=== PATIENT | female | born 1955 | race Caucasian/White ===

== ENCOUNTER 2021-04-04 13:20 | Emergency (ER) | payer OTHER, SELFPAY ==
--- NOTE | ~2021-04-04 | XR_ITS ---
EXAMINATION: XR hip LT min 2V DATE: 04/04/2021 13:55 INDICATION: Left hip pain post running 2 weeks prior. TECHNIQUE: Anteroposterior and frog-leg lateral views of the left hip were obtained. COMPARISON: None. FINDINGS: Bone alignment is normal. No fracture or suspected avascular necrosis. Left hip joint space appears n ormal although there are small marginal osteophytes along the rim of the acetabulum consistent with m ild osteoarthritis. Transitional lumbosacral segment. The immediately more cephalad lower lumbar vert ebral body demonstrates an age-indeterminate mild central endplate compression fracture. Soft tissues are unremarkable. IMPRESSION: 1. Mild left hip osteoarthritis. 2. Age indeterminate lower lumbar mild central endplate compression fracture. Reviewed, dictated and finalized at location A.
--- NOTE | 2021-04-04 13:23 | ED.LOWEXIN ---
HPI - Extremity Injury (Lower) General Chief Complaint: Extremity Injury, Lower Stated Complaint: L Leg pain Time Seen by Provider: 04/04/21 13:23 Source: patient and RN notes reviewed History of Present Illness HPI Narrative: Patient is a 65-year-old female who presents the urgent care with complaints of left hip/leg pain. Patient states that 2 weeks ago that she jogged a 4 mile run and she was having some left leg pain at the time. Patient states that then last weekend she got a massage which really exacerbated the pain. Patient believes that she has a stress fracture in the hip . Patient states that she has been taking Flexeril/Advil/Aleve for pain relief. Patient is also used ice and heat. Patient denies of any traumatic injury or fall. No other acute complaints. No acute distress noted. Patient aware of the plan of care. Some parts of this dictation were generated by voice recognition software and may contain typographical and/or grammatical inaccuracies. Related Data Home Medications Medication Instructions Recorded Confirmed albuterol sulfate 2 puff INHALATION Q4H PRN 04/04/21 04/04/21 beclomethasone dipropionate [Qvar 80 mcg INHALATION BID 04/04/21 04/04/21 RediHaler] cyclobenzaprine 5 mg PO BID PRN 04/04/21 04/04/21 montelukast 10 mg PO HS 04/04/21 04/04/21 pantoprazole 40 mg PO DAILY 04/04/21 04/04/21 phentermine 37.5 mg PO DAILY 04/04/21 04/04/21 tramadol 50 mg PO TID PRN 04/04/21 04/04/21 trazodone 100 mg PO DAILY 04/04/21 04/04/21 venlafaxine 75 mg PO DAILY 04/04/21 04/04/21 Allergies Allergy/AdvReac Type Severity Reaction Status Date / Time Penicillins Allergy Intermediate Rash Verified 04/04/21 13:51 Review of Systems Review of Systems: CONSTITUTIONAL: Denies fever, chills, or sweats. EYES: Denies visual changes, redness, or discharge. ENT: Denies rhinorrhea, congestion, sore throat, or otalgia. CARDIOVASCULAR: Denies chest pain, palpitations, or edema. RESPIRATORY: Denies cough or dyspnea. GASTROINTESTINAL: Denies abdominal pain, nausea, vomiting, or diarrhea. GENITOURINARY: Denies dysuria or hematuria. SKIN: Denies rash or itching. MUSCULOSKELETAL: Reports of left hip pain radiating down the left leg NEUROLOGIC: Denies headache, numbness, or weakness. All other systems reviewed are negative, except as documented in HPI. PMFSH Comments At the time of my signature, I reviewed and agree with the nursing past medical, surgical, social, and family history. There is no relevant family history pertinent to the patient complaint. Exam Narrative: GENERAL: This is a well-nourished, well-developed patient, in no apparent distress. HEAD: normocephalic, atraumatic. EYES: PERRL. Sclera clear/white. Vision is grossly intact. EARS: External ears normal NOSE: External nose normal with no obvious nasal discharge, nares without redness, no rhinorrhea. THROAT: Mucous membranes moist NECK: Neck supple CARDIOVASCULAR: Regular rate and rhythm without murmurs, gallops, or rubs. RESPIRATORY: Clear to auscultation. Breath sounds equal bilaterally. No wheezes, rales, or rhonchi. SKIN: Ecchymotic area to the left piriformis region. Warm, intact with no suspicious lesions or rash, good texture and turgor. NEURO: awake, alert, and oriented to person, place and time. There were no obvious focal neurologic abnormalities. EXTREMITIES: Ambulating within normal limits without any shortening of the left lower extremity. Positive strong left pedal pulse with capillary refill less than 2 seconds. BACK: Mild to moderate tenderness over the left piriformis region with positive left SLE Course Vital Signs Vital signs: Vital Signs Temperature 98.1 F 04/04/21 13:37 Pulse Rate 78 04/04/21 13:37 Respiratory Rate 04/04/21 13:37 Blood Pressure 130/75 04/04/21 13:37 Pulse Oximetry 100 04/04/21 13:37 Temperature 98.1 F 04/04/21 13:37 Pulse Rate 78 04/04/21 13:37 Respiratory Rate 04/04/21 13:37 B
[2021-04-04 13:37] VITALS: BP 130/75; PULSE 78; RESP 20; TEMP 36.7; O2SAT 100
== END 2021-04-04 14:27 | disposition home or self-care (01) ==
PROVIDERS: Emergency Provider Nurse Practitioner Family; PCP Internal Medicine
DX: G57.02 Lesion of sciatic nerve, left lower limb (principal); M16.12 Unilateral primary osteoarthritis, left hip; J45.909 Unspecified asthma, uncomplicated; K21.9 Gastro-esophageal reflux disease without esophagitis; Z90.711 Acquired absence of uterus with remaining cervical stump; F32.9 Major depressive disorder, single episode, unspecified
CPT/HCPCS: 73502; 99213; G0463

== ENCOUNTER 2021-05-04 12:48 | Emergency (ER) | payer MEDICARE, SELFPAY ==
[2021-05-04 12:55] VITALS: BP 134/89; PULSE 96; RESP 16; TEMP 36.7; O2SAT 97
--- NOTE | 2021-05-04 12:57 | ED.URI ---
HPI - URI/Sore Throat General Chief Complaint: Upper Respiratory Infection Stated Complaint: breathing prob,cough,head izabel Source: patient and RN notes reviewed Mode of arrival: ambulatory Limitations: no limitations History of Present Illness HPI Narrative: Ailyn is a 66 year old patient who ambulated into urgent care with c/o cough and chest pressure all the time. patient states she has been sick for four weeks--she has had a negative covid test on 04/12. She has seen her PCP at beginning of april, no RX's given. Patient states she started with sinus drainage and nasal congestion, which then turned into hacky cough worse at night over last week. patient states she has not used her albuterol inhaler. MD elicited complaint: cough and sinus pain Related Data Home Medications Medication Instructions Recorded Confirmed albuterol sulfate 2 puff INHALATION Q4H PRN 04/04/21 05/04/21 beclomethasone dipropionate [Qvar 80 mcg INHALATION BID 04/04/21 05/04/21 RediHaler] cyclobenzaprine 5 mg PO BID PRN 04/04/21 05/04/21 montelukast 10 mg PO HS 04/04/21 05/04/21 pantoprazole 40 mg PO DAILY 04/04/21 05/04/21 phentermine 37.5 mg PO DAILY 04/04/21 05/04/21 tramadol 50 mg PO TID PRN 04/04/21 05/04/21 trazodone 100 mg PO DAILY 04/04/21 05/04/21 venlafaxine 75 mg PO DAILY 04/04/21 05/04/21 Allergies Allergy/AdvReac Type Severity Reaction Status Date / Time Penicillins Allergy Intermediate Rash Verified 05/04/21 12:53 Review of Systems Review of Systems: CONSTITUTIONAL: Denies body aches, fever, chills, or sweats. EYES: Denies visual changes, redness, or discharge. ENT: Denies rhinorrhea, +congestion, denies sore throat, or otalgia. CARDIOVASCULAR: Denies chest pain, palpitations, or edema. RESPIRATORY: + cough denies dyspnea. GASTROINTESTINAL: Denies abdominal pain, nausea, vomiting, or diarrhea. GENITOURINARY: Denies dysuria or hematuria. SKIN: Denies rash, itching, or wounds. MUSCULOSKELETAL: Denies back pain, joint pain, or myalgia. NEUROLOGIC: Denies headache, numbness, tingling, or weakness. PSYCH: Denies depression or anxiety. All systems reviewed & are unremarkable except as noted in HPI and below PMFSH Comments At time of signature, I have reviewed and agree with nursing past medical, surgical, social and family history unless otherwise noted. Please see nursing chart for further information. There is no relevant family history pertinent to the presenting complaint Exam Narrative: GENERAL: Well-appearing, well-nourished, and in no acute distress. HEAD: Normocephalic, atraumatic. EYES: EOMI. No redness or drainage. Conjunctivae normal. ENT: Mucous membranes pink and moist. Nares clear. No rhinorrhea. TMs dull. Posterior pharynx with minimal erythema and clear postnasal drainage.; pain with palpation maxillary sinuses NECK: Normal AROM. Supple. No lymphadenopathy. CHEST: No respiratory distress. Clear to auscultation except wheezing in RUL, HEART: Regular rate and rhythm. No murmur appreciated. Normal peripheral pulses. MUSCULOSKELETAL: No bony tenderness. EXTREMITIES: Normal range of motion. No edema. SKIN: Warm, dry, no rash. Capillary refill normal. Normal skin turgor. NEURO: No focal deficits. Alert and oriented x3. Gait steady. PSYCH: Normal affect. No signs of depression or anxiety. Course Vital Signs Vital signs: Reviewed. Pt has been instructed to follow up with her PCP regarding her elevated blood pressure today. MDM - URI/Sore Throat MDM Narrative Medical decision making narrative: Patient has had sinus symptoms for 4 weeks. Patient stated the cough started within the last week. Patient has not used her albuterol inhaler as directed. Patient informed to use her albuterol for wheezing. Patient informed to take the doxycycline as prescribed Differential Diagnosis Differential diagnosis: Likely upper respiratory infection, otitis media, sinusitis and bronchitis Medical Records Attestation:
[2021-05-04 13:05] VITALS: BP 134/89; PULSE 96; RESP 16; TEMP 36.7; O2SAT 97
== END 2021-05-04 13:20 | disposition home or self-care (01) ==
PROVIDERS: Emergency Provider Nurse Practitioner Family; PCP Internal Medicine
DX: J40 Bronchitis, not specified as acute or chronic (principal); K21.9 Gastro-esophageal reflux disease without esophagitis; Z90.711 Acquired absence of uterus with remaining cervical stump; F32.A Depression, unspecified
CPT/HCPCS: 99213; G0463

== ENCOUNTER 2021-12-02 10:33 | Emergency (ER) | payer MEDICARE, SELFPAY ==
--- NOTE | ~2021-12-02 | XR_ITS ---
XR chest 2V DATE: 12/02/2021 12:06 INDICATION: Cough. History of pulmonary abscess. TECHNIQUE: 2 views COMPARISON: 05/03/2019 PA and lateral chest FINDINGS: Normal heart size. No hilar or mediastinal enlargement. Moderate bilateral hyperinflation. No pulmonary infiltrate or consolidation, pleural effusion or pulmonary vascular congestion or pneumo thorax. Osteopenia. There is interval moderate loss of height and anterior wedging of a lower thoracic vertebral body, ap proximately T11, since 05/03/2019. IMPRESSION: Interval moderate compression fracture deformity of the lower thoracic vertebral body sin ce 2019 Osteopenia No active cardiopulmonary disease Reviewed, dictated and finalized at location A. IMPRESSION: Interval moderate compression fracture deformity of the lower thora cic vertebral body since 2019 Osteopenia No active cardiopulmonary disease
[2021-12-02 10:42] VITALS: BP 128/76; PULSE 107; RESP 16; TEMP 38.2; O2SAT 100
--- NOTE | 2021-12-02 11:54 | ED.GENADULT ---
HPI - General Adult General Chief complaint: Upper Respiratory Infection Stated complaint: Sore Throat/Cough Source: patient Mode of arrival: ambulatory History of Present Illness HPI narrative: Patient presents for evaluation of respiratory symptoms. 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 She has previously undergone bronchoscopy and is under the care of Dr. Michael, coroner/medical examiner at [facility]. She states she is immunosuppressed and receives infusions once monthly for this. Around the time of her infusions she usually feels run down but her symptoms improve after her infusion. She states last week she was feeling run down but her symptoms did not improve after her infusion. She states she can tell when she is getting a respiratory infection because her sputum becomes green in appearance. She states her sputum is now green in appearance. She has some exertional dyspnea and wheezing. No fever, chills, nausea, vomiting, diarrhea, body aches or chest pain. She is compliant with her inhalers. She does not smoke. She did receive her COVID vaccination. She had COVID some time in the last year. Her throat feels raw from coughing. No additional complaints or concerns. Related Data Home Medications Medication Instructions Recorded Confirmed albuterol sulfate 90 mcg/actuation 2 puff inhalation Q4H PRN 04/04/21 12/02/21 aerosol inhaler Shortness Of Breath Or Wheezing beclomethasone dipropionate 80 80 mcg inhalation BID 04/04/21 12/02/21 mcg/actuation HFA breath activated aerosol (Qvar RediHaler) montelukast 10 mg tablet 10 mg PO HS 04/04/21 12/02/21 pantoprazole 40 mg tablet,delayed 40 mg PO DAILY 04/04/21 12/02/21 release phentermine 37.5 mg tablet 37.5 mg PO DAILY 04/04/21 12/02/21 tramadol 50 mg tablet 50 mg PO TID PRN Pain 04/04/21 12/02/21 trazodone 100 mg tablet 100 mg PO DAILY 04/04/21 12/02/21 venlafaxine 75 mg capsule,extended 75 mg PO DAILY 04/04/21 12/02/21 release 24 hr Allergies Allergy/AdvReac Type Severity Reaction Status Date / Time Penicillins Allergy Intermediate Rash Verified 12/02/21 11:49 Review of Systems Review of Systems: CONSTITUTIONAL: Denies fever, chills, or sweats. EYES: Denies visual changes, redness, or discharge. ENT: Reports sore throat. Denies rhinorrhea, congestion, or otalgia. CARDIOVASCULAR: Denies chest pain, palpitations, or edema. RESPIRATORY: Reports productive cough of green sputum, exertional dyspnea, and wheezing. GASTROINTESTINAL: Denies abdominal pain, nausea, vomiting, or diarrhea. GENITOURINARY: Denies dysuria or hematuria. SKIN: Denies rash or itching. MUSCULOSKELETAL: Denies back pain, joint pain, or myalgia. NEUROLOGIC: Denies headache, numbness, dizziness, or weakness. PSYCHIATRIC: Denies anxiety or depression. [facility] Past Medical History Medical History (Updated 12/02/21 @ 12:46 by SUSI Garcia, ) History of recurrent pulmonary infection Immunocompromised Surgical History Surgical History History of lung biopsy Family History Family History (Updated 12/02/21 @ 12:01 by SUSI Garcia, ) Mother Family history non-contributory Social History Social History Smoking status: Never smoker Substance use: never Living arrangements: with family Gender identity (if verbalized by the patient): Female Sexual Orientation (if Verbalized by the Patient): Straight or Heterosexual Spiritual care concerns: No Exam Narrative: GENERAL: Well-appearing, well-nourished, and in no acute distress. HEAD: Normocephalic, atraumatic. EYES: PERRLA and EOMI. ENT: Nares clear, no rhinorrhea or epistaxis. Mucous membranes moist. Oropharynx without tonsillar hypertrophy exudate or other lesions. Bilateral TMs fior
[2021-12-02 12:50] VITALS: TEMP 37.9
[2021-12-02] MEDS: ACETAMINOPHEN 500 MG TABLET 1000 MG PO (12:50)
== END 2021-12-02 13:04 | disposition home or self-care (01) ==
PROVIDERS: Emergency Provider Nurse Practitioner; PCP Internal Medicine
DX: J18.9 Pneumonia, unspecified organism (principal); M48.54XA Collapsed vertebra, not elsewhere classified, thoracic region, initial encounter for fracture; Z20.822 Contact with and (suspected) exposure to COVID-19; D84.9 Immunodeficiency, unspecified
CPT/HCPCS: 71046; 87081; 87426; 87804; 87880; 99213; A9270; C9803; G0463

== ENCOUNTER 2021-12-12 11:37 | Emergency (ER) | payer MEDICARE, SELFPAY ==
--- NOTE | ~2021-12-12 | XR_ITS ---
XR knee RT min 4V 12/12/2021 12:08 Indication: Generalized right knee swelling after running Procedure: 4 views right knee Comparison: No prior studies for comparison. Findings: Moderate joint effusion. No acute fracture or traumatic malalignment. No foreign bodies. No significant joint space narrowing. Impression: 1: Moderate joint effusion. Reviewed, dictated and finalized at location B. Impression: 1: Moderate joint effusion.
[2021-12-12 11:42] VITALS: BP 119/74; PULSE 95; RESP 16; TEMP 37.1; O2SAT 100
--- NOTE | 2021-12-12 11:44 | ED.LOWEXIN ---
HPI - Extremity Injury (Lower) General Chief Complaint: Extremity Injury, Lower Stated Complaint: right knee pain Time Seen by Provider: 12/12/21 11:45 Source: patient Mode of arrival: ambulatory Limitations: no limitations History of Present Illness HPI Narrative: Ms. Araujo is a 66-year-old female patient presenting to the clinic today with complaints of right knee pain 1 week. She reports she began having pain 3 days after running. She reports that she has pain all over the knee joint however the anterior knee joint is the most painful. She reports that it hurts to bend her knee. Knee is swollen when compared to the left knee. She has tried rest, ice, and elevation as well as Motrin for the discomfort with little relief Related Data Home Medications Medication Instructions Recorded Confirmed albuterol sulfate 90 mcg/actuation 2 puff inhalation Q4H PRN 04/04/21 12/12/21 aerosol inhaler Shortness Of Breath Or Wheezing beclomethasone dipropionate 80 80 mcg inhalation BID 04/04/21 12/12/21 mcg/actuation HFA breath activated aerosol (Qvar RediHaler) montelukast 10 mg tablet 10 mg PO HS 04/04/21 12/12/21 pantoprazole 40 mg tablet,delayed 40 mg PO DAILY 04/04/21 12/12/21 release phentermine 37.5 mg tablet 37.5 mg PO DAILY 04/04/21 12/12/21 tramadol 50 mg tablet 50 mg PO TID PRN Pain 04/04/21 12/12/21 trazodone 100 mg tablet 100 mg PO DAILY 04/04/21 12/12/21 venlafaxine 75 mg capsule,extended 75 mg PO DAILY 04/04/21 12/12/21 release 24 hr Allergies Allergy/AdvReac Type Severity Reaction Status Date / Time Penicillins Allergy Intermediate Rash Verified 12/12/21 11:44 Review of Systems Review of Systems: Pertinent positives per HPI. Patient denies any fever, chills, rash, headache, visual changes, dizziness, cough, runny nose, sore throat, shortness of breath, chest pain, palpitations, nausea, vomiting, diarrhea, constipation, abdominal pain, or any urinary issues. [facility] Past Medical History Medical History History of recurrent pulmonary infection Immunocompromised Surgical History Surgical History History of lung biopsy Family History Family History Mother Family history non-contributory Social History Social History Smoking status: Never smoker Substance use: never Gender identity (if verbalized by the patient): Female Sexual Orientation (if Verbalized by the Patient): Straight or Heterosexual Spiritual care concerns: No Comments At the time of my signature, I reviewed and agree with the nursing past medical, surgical, social, and family history. There is no relevant family history pertinent to the patient complaint. Exam Narrative: General: Well-developed, well nourished, in no apparent distress Head: Normocephalic, atraumatic. Cardio: Regular rate and rhythm, s1 and s2 normal, no murmur appreciated. Resp: Clear to auscultation bilaterally, no rhonchi, rales, wheezing or rubs. Musculoskeletal: No deformity, no crepitus felt with flexion and extension of the knee, tender to palpation over the anterior and posterior knee, pain with flexion of the knee, knee swelling with possible knee effusion, muscle strength strong and equal, peripheral pulse strong, no cyanosis, limping gait and station Course Course Emergency Course: Portions of this record may have been created with voice recognition software. Level of Care: Express Care Visit Vital Signs Vital signs: Vital Signs Temperature 37.1 C 12/12/21 11:42 Pulse Rate 95 12/12/21 11:42 Respiratory Rate 16 12/12/21 11:42 Blood Pressure 119/74 12/12/21 11:42 Pulse Oximetry 100 12/12/21 11:42 Oxygen Delivery Room Air 12/12/21 11:42 Temperature 37.1 C 12/12/21 11:
== END 2021-12-12 12:43 | disposition home or self-care (01) ==
PROVIDERS: Emergency Provider Nurse Practitioner Family; PCP Internal Medicine
DX: S83.91XA Sprain of unspecified site of right knee, initial encounter (principal); X58.XXXA Exposure to other specified factors, initial encounter; Y93.02 Activity, running; M25.461 Effusion, right knee; K21.9 Gastro-esophageal reflux disease without esophagitis; Z90.711 Acquired absence of uterus with remaining cervical stump; F32.A Depression, unspecified
CPT/HCPCS: 73564; 99213; G0463

== ENCOUNTER 2022-11-10 16:38 | Emergency (ER) | payer MEDICARE, SELFPAY ==
--- NOTE | ~2022-11-10 | XR_ITS ---
EXAMINATION: XR chest 2V Exam Date/Time: 11/10/2022 17:05 CDT HISTORY: COUGH X 1 DAY. HX: MICRO-BACTERIA/BRONCHITIS. Comparison: 12/02/2021. RESULT: Lines, tubes, and devices: None. Lungs and pleura: Clear. Cardiomediastinal silhouette: Stable. Other: No acute osseous or upper abdominal finding. IMPRESSION: No acute cardiopulmonary process. Reviewed, dictated and finalized at location K.
[2022-11-10 16:48] VITALS: BP 144/79; PULSE 95; RESP 20; TEMP 37.1; O2SAT 97
--- NOTE | 2022-11-10 16:51 | ED.GENADULT ---
HPI - General Adult General Chief complaint: Upper Respiratory Infection Stated complaint: lung issues Time Seen by Provider: 11/10/22 16:51 Source: patient, RN notes reviewed and old records reviewed Mode of arrival: ambulatory Limitations: no limitations History of Present Illness HPI narrative: 67 year old [facility] with complaints of cough which is worse for the past day and is concerned since she is going on vacation. Patient reports that she has history of lung problems and immunodeficiency for which she takes monthly Gamma Guard. Patient has history of chronic bacterial infections of her lungs and asthma,uses inhalers as prescribed. Patient denies any acute fevers highest noted 99.1F. Patient reports that she has been taking Mucinex and is expectorating vidales mucous MD complaint: increased cough,chronic lung issues and immunodeficiency Onset (ago): day(s) (1) Treatments prior to arrival: other (Mucinex) Related Data Home Medications Medication Instructions Recorded Confirmed albuterol sulfate 90 mcg/actuation 2 puff inhalation Q4H PRN 04/04/21 12/12/21 aerosol inhaler Shortness Of Breath Or Wheezing beclomethasone dipropionate 80 80 mcg inhalation BID 04/04/21 12/12/21 mcg/actuation HFA breath activated aerosol (Qvar RediHaler) montelukast 10 mg tablet 10 mg PO HS 04/04/21 12/12/21 pantoprazole 40 mg tablet,delayed 40 mg PO DAILY 04/04/21 12/12/21 release phentermine 37.5 mg tablet 37.5 mg PO DAILY 04/04/21 12/12/21 tramadol 50 mg tablet 50 mg PO TID PRN Pain 04/04/21 12/12/21 trazodone 100 mg tablet 100 mg PO DAILY 04/04/21 12/12/21 venlafaxine 75 mg capsule,extended 75 mg PO DAILY 04/04/21 12/12/21 release 24 hr omeprazole 20 mg capsule,delayed mg 11/10/22 release Allergies Allergy/AdvReac Type Severity Reaction Status Date / Time Penicillins Allergy Intermediate Rash Verified 12/12/21 11:44 Review of Systems Review of Systems: CONSTITUTIONAL: reports malaise, no chills, sweats, low grade temp EYES: Denies visual changes, redness, or discharge. ENT: Reports rhinorrhea, congestion,no sinus pain, no otalgia and no sore throat. CARDIOVASCULAR: Denies chest pain, palpitations, or edema. RESPIRATORY: Reports cough.productive and increased? Denies dyspnea. GASTROINTESTINAL: Denies abdominal pain, nausea, vomiting, diarrhea SKIN: Denies rash or itching. MUSCULOSKELETAL: Denies myalgia. NEUROLOGIC: Denies headache. All systems reviewed & are unremarkable except as noted in HPI and below PMFSH Past Medical History Medical History (Updated 11/11/22 @ 15:17 by Mar Fernandes NP) Asthma History of recurrent pulmonary infection Immunocompromised Pneumonia Surgical History Surgical History (Updated 11/11/22 @ 15:11 by Mar Fernandes NP) History of lung biopsy History of partial hysterectomy Family History Family History Mother Family history non-contributory Social History Social History Smoking status: Never smoker Substance use: never Living arrangements: with family Gender identity (if verbalized by the patient): Female Sexual Orientation (if Verbalized by the Patient): Straight or Heterosexual Spiritual care concerns: No Comments At time of signature, agree with nursing past medical, surgical, social and family history. There is no relevant family history pertinent to the presenting complaint Exam Narrative: GENERAL: Well-appearing, well-nourished, and in no acute distress. HEAD: Normocephalic EYES: PERRLA, conjunctivae clear ENT: Nares clear, turbinates edematous and erythematous, clear discharge. Mucous membranes moist. TM pearly vidales with dull light reflex bilaterally; no tragal tenderness. Oropharynx erythematous without lesions. Tonsils not enlarged and without exudate, no drooling, no h
== END 2022-11-10 17:28 | disposition home or self-care (01) ==
PROVIDERS: Emergency Provider Registered Nurse; PCP Internal Medicine
DX: D84.9 Immunodeficiency, unspecified (principal); R05.9 Cough, unspecified; Z87.09 Personal history of other diseases of the respiratory system; J45.909 Unspecified asthma, uncomplicated; Z90.711 Acquired absence of uterus with remaining cervical stump
CPT/HCPCS: 71046; 99213; G0463

== ENCOUNTER 2023-07-05 15:14 | Emergency (ER) | payer MEDICARE, SELFPAY ==
--- NOTE | ~2023-07-05 | XR_ITS ---
EXAM: XR wrist RT min 3V DATE: 07/05/2023 15:33 HISTORY: FOOSH INJURY, RADIAL PAIN . COMPARISON: None available. FINDINGS: Decreased mineralization. Transverse, extra-articular, nondisplaced fracture of the distal right radius. No lytic or blastic lesion. Mild scattered degenerative changes. No erosion or periost eal change. Soft tissues within normal limits. IMPRESSION: Transverse, extra articular, nondisplaced fracture of the distal right radius. Reviewed, dictated and finalized at location K. [employer] IMPRESSION: Transverse, extra articular, nondisplaced fracture of the distal ri ght radius.
[2023-07-05 15:21] VITALS: BP 139/77; PULSE 86; RESP 16; TEMP 37.4; O2SAT 97
--- NOTE | 2023-07-05 15:34 | ED.GENADULT ---
HPI - General Adult General Chief complaint: Extremity Injury, Upper Stated complaint: Right Wrist injury Source: patient, RN notes reviewed and old records reviewed Mode of arrival: ambulatory Limitations: no limitations History of Present Illness HPI narrative: 68-year-old female presents to [facility] with complaints right wrist and forearm pain this started prior to arrival after falling forward and putting arm out to catch self. Patient states hurts to move the arm. patient denies any other injuries MD complaint: wrist pain Onset (ago): hour(s) (2) Related Data Home Medications Medication Instructions Recorded Confirmed montelukast 10 mg tablet 10 mg PO HS 04/04/21 07/05/23 pantoprazole 40 mg tablet,delayed 40 mg PO DAILY 04/04/21 07/05/23 release phentermine 37.5 mg tablet 37.5 mg PO DAILY 04/04/21 07/05/23 trazodone 100 mg tablet 100 mg PO DAILY 04/04/21 07/05/23 venlafaxine 75 mg capsule,extended 75 mg PO DAILY 04/04/21 07/05/23 release 24 hr omeprazole 20 mg capsule,delayed 20 mg PO DAILY 11/10/22 07/05/23 release Allergies Allergy/AdvReac Type Severity Reaction Status Date / Time Penicillins Allergy Intermediate Rash Verified 07/05/23 15:41 Review of Systems Constitutional: Constitutional: Reports no additional constitutional complaints, Denies body ache(s), Denies chills, Denies fatigue, Denies fever(s) and Denies headache(s) Eyes: Eyes: Reports no additional eye complaints and Denies blurry vision ENT: Reports system reviewed and no additional complaints, except as documented, Denies vertigo, Denies dizziness, Denies ear discharge, Denies otalgia, Denies facial pain, Denies headache(s), Denies nasal congestion, Denies nasal discharge, Denies sinus pain, Denies sinus pressure and Denies sore throat Cardiovascular: Cardiovascular: Reports no additional cardiovascular complaints, Denies chest pain, Denies chest pain at rest, Denies rapid heart rate and Denies dyspnea Respiratory: Respiratory: Reports no additional respiratory complaints, Denies chest congestion, Denies cough, Denies pain on inspiration, Denies pain with cough and Denies dyspnea Gastrointestinal: Gastrointestinal: Denies abdominal pain, Denies diarrhea, Denies nausea and Denies vomiting Musculoskeletal: Musculoskeletal: Reports deformity ( left forearm) and Reports radiating pain into limb Integumentary/Breasts: Skin/Breast: Denies rash Neurologic: Reports system reviewed and no additional complaints, except as documented, Denies vertigo, Denies dizziness and Denies headache(s) Endocrine: Endocrine: Denies fatigue PMFSH Past Medical History Medical History Asthma History of recurrent pulmonary infection Immunocompromised Pneumonia Surgical History Surgical History History of lung biopsy History of partial hysterectomy Family History Family History Mother Family history non-contributory Social History Social History Smoking status: Never smoker Substance use: never Living arrangements: with family Gender identity (if verbalized by the patient): Female Sexual Orientation (if Verbalized by the Patient): Straight or Heterosexual Spiritual care concerns: No Comments At the time of my signature, I reviewed and agree with the nursing past medical, surgical, social, and family history. There is no relevant family history pertinent to the patient complaint. Exam Const: General: cooperative, healthy appearing, no acute distress and well nourished Nutritional Appearance: well nourished Orientation/consciousness: patient oriented x3 Limitations: no limitations HENMT: Head: normal to inspection and normocephalic Ears: external ears normal, TM's normal bilaterally, mastoids normal and Abnor
== END 2023-07-05 16:20 | disposition home or self-care (01) ==
PROVIDERS: Emergency Provider Registered Nurse; PCP Internal Medicine
DX: S52.551A Other extraarticular fracture of lower end of right radius, initial encounter for closed fracture (principal); W19.XXXA Unspecified fall, initial encounter; J45.909 Unspecified asthma, uncomplicated
CPT/HCPCS: 29125; 73110; 99214; A4565; G0463

== ENCOUNTER 2023-07-24 13:32 | Emergency (ER) | payer MEDICARE, SELFPAY ==
[2023-07-24 13:38] VITALS: BP 157/87; PULSE 91; RESP 16; TEMP 38.8; O2SAT 98
[2023-07-24 13:40] VITALS: BP 150/92
[2023-07-24 13:57] VITALS: BP 150/92
--- NOTE | 2023-07-24 14:06 | ED.URI ---
HPI - URI/Sore Throat General Chief Complaint: Upper Respiratory Infection Stated Complaint: Ear ache/throat Time Seen by Provider: 07/24/23 14:00 Source: patient, family, RN notes reviewed and old records reviewed Mode of arrival: ambulatory Limitations: no limitations History of Present Illness HPI Narrative: 68 year old female presents to [facility] care with complaints of 2 day history of ear pain, sore throat and also cough with some noted fever today at time of triage. Patient reports that she has chronic lung condition and immunodeficiency for which she has monthly infusions. Patient reports she was treated the week after Ralph for upper respiratory infection with an antibiotic. Patient states that her right ear pain is worse than her left and states sore throat but has not taken any OTC pain medications. Patient does take Claritin and Singulair daily. MD elicited complaint: fever, cough, sore throat and other (ear pain.) Pertinent past history: other (lung problem and decreased immune system) Onset (ago): day(s) (2) Able to tolerate fluids by mouth: Yes Treatments prior to arrival: other (Claritin and Singulair daily) Related Data Home Medications Medication Instructions Recorded Confirmed montelukast 10 mg tablet 10 mg PO HS 04/04/21 07/24/23 venlafaxine 75 mg capsule,extended 75 mg PO DAILY 04/04/21 07/24/23 release 24 hr omeprazole 20 mg capsule,delayed 20 mg PO DAILY 11/10/22 07/24/23 release loratadine 10 mg tablet (Claritin) 10 mg PO DAILY 07/24/23 07/24/23 Allergies Allergy/AdvReac Type Severity Reaction Status Date / Time Penicillins Allergy Intermediate Rash Verified 07/24/23 13:56 Review of Systems Review of Systems: CONSTITUTIONAL: Reports malaise, chills, sweats, or fever. EYES: Denies visual changes, redness, or discharge. ENT: Reports rhinorrhea, congestion, sinus pain,positive for otalgia and sore throat. CARDIOVASCULAR: Denies chest pain, palpitations, or edema. RESPIRATORY: Reports cough.? Denies dyspnea. GASTROINTESTINAL: Denies abdominal pain, nausea, vomiting, diarrhea SKIN: Denies rash or itching. MUSCULOSKELETAL: Denies myalgia. NEUROLOGIC: Denies headache. All systems reviewed & are unremarkable except as noted in HPI and below PMFSH Past Medical History Medical History Asthma History of recurrent pulmonary infection Immunocompromised Pneumonia Surgical History Surgical History History of lung biopsy History of partial hysterectomy Family History Family History Mother Family history non-contributory Social History Social History Smoking status: Never smoker Substance use: never Living arrangements: with family Gender identity (if verbalized by the patient): Female Sexual Orientation (if Verbalized by the Patient): Straight or Heterosexual Spiritual care concerns: No Comments At time of signature, agree with nursing past medical, surgical, social and family history. There is no relevant family history pertinent to the presenting complaint Exam Narrative: GENERAL: Well-appearing, well-nourished, and in no acute distress. HEAD: Normocephalic EYES: PERRLA, conjunctivae clear ENT: Nares clear, turbinates edematous and erythematous, clear discharge. Mucous membranes moist. TM pearly vidales with dull light reflex bilaterally; no tragal tenderness. Oropharynx erythematous without lesions. Tonsils not enlarged and without exudate, no drooling, no hoarseness, no trismus, uvula midline. NECK: Supple. No lymphadenopathy CHEST: Clear to auscultation, breath sounds equal. No wheezing, rhonchi, rales, or stridor. No respiratory distress, speaks in full sentences.cough noted [id number]% on room air HEART: Regular rate and rhyth
== END 2023-07-24 14:36 | disposition home or self-care (01) ==
PROVIDERS: Emergency Provider Registered Nurse; PCP Internal Medicine
DX: J06.9 Acute upper respiratory infection, unspecified (principal); R05.9 Cough, unspecified; J45.909 Unspecified asthma, uncomplicated; J98.4 Other disorders of lung; Z90.711 Acquired absence of uterus with remaining cervical stump
CPT/HCPCS: 87081; 87880; 99213; G0463

== ENCOUNTER 2023-09-29 11:43 | Emergency (ER) | payer MEDICARE, SELFPAY ==
--- NOTE | ~2023-09-29 | XR_ITS ---
EXAMINATION: XR chest 2V 09/29/2023 12:45 INDICATION: Productive cough PROCEDURE: 2 view chest COMPARISON: Comparison to multiple prior studies sequentially, with oldest reviewed study dated 08/2018. FINDINGS: The lungs are clear. The cardiomediastinal silhouette is within normal limits. There are no pleural effusions. There is no pneumothorax suspected. IMPRESSION: 1: NO ACUTE CARDIOPULMONARY DISEASE. Reviewed, dictated and finalized at location L.
[2023-09-29 12:11] VITALS: BP 136/80; PULSE 100; RESP 18; TEMP 36.9; O2SAT 98
--- NOTE | 2023-09-29 12:37 | ED.URI ---
HPI - URI/Sore Throat General Chief Complaint: Upper Respiratory Infection Stated Complaint: upper respiratory Time Seen by Provider: 09/29/23 12:30 Source: patient, RN notes reviewed and old records reviewed Mode of arrival: ambulatory Limitations: no limitations History of Present Illness HPI Narrative: 68-[facility]-old [facility] to [facility] with complaint of cough with yellow cloudy sputum, nasal congestion, runny nose for 3 days. Patient endorses that 4 days ago she was outside doing a lot of yd work. patient endorses history of pulmonary issues and bronchitis. patient denies cough, fever, headache. Patient able to tolerate fluids by mouth. Related Data Home Medications Medication Instructions Recorded Confirmed montelukast 10 mg tablet 10 mg PO HS 04/04/21 07/24/23 venlafaxine 75 mg capsule,extended 75 mg PO DAILY 04/04/21 07/24/23 release 24 hr omeprazole 20 mg capsule,delayed 20 mg PO DAILY 11/10/22 07/24/23 release loratadine 10 mg tablet (Claritin) 10 mg PO DAILY 07/24/23 07/24/23 Allergies Allergy/AdvReac Type Severity Reaction Status Date / Time Penicillins Allergy Intermediate Rash Verified 07/24/23 13:56 Review of Systems Review of Systems: All systems reviewed & are unremarkable except as noted in HPI and below Constitutional: Constitutional: Reports no additional constitutional complaints, Denies fever(s) and Denies headache(s) Eyes: Eyes: Reports no additional eye complaints ENT: Reports as per HPI, Reports nasal congestion and Reports nasal discharge ( clear) Cardiovascular: Cardiovascular: Reports no additional cardiovascular complaints, Denies chest pain and Denies dyspnea Respiratory: Respiratory: Reports no additional respiratory complaints, Reports change in phlegm color ( cloudy yellow per patient), Reports cough and Denies dyspnea Musculoskeletal: Musculoskeletal: Reports no additional musculoskeletal complaints Neurologic: Reports system reviewed and no additional complaints, except as documented Psychiatric: Psychiatric: Reports no additional psychiatric complaints PMFSH Past Medical History Medical History Asthma History of recurrent pulmonary infection Immunocompromised Pneumonia Surgical History Surgical History History of lung biopsy History of partial hysterectomy Family History Family History Mother Family history non-contributory Social History Social History Smoking status: Never smoker Substance use: never Living arrangements: with family Gender identity (if verbalized by the patient): Female Sexual Orientation (if Verbalized by the Patient): Straight or Heterosexual Spiritual care concerns: No Comments At the time of my signature, I reviewed and agree with the nursing past medical, surgical, social, and family history. There is no relevant family history pertinent to the patient complaint. Exam Const: General: cooperative, healthy appearing, comfortable, no acute distress, alert, tired appearing and well nourished Nutritional Appearance: well nourished Orientation/consciousness: patient oriented x3 Limitations: no limitations HENMT: Head: normal to inspection Ears: external ears normal and TM abnormal with fluid behind the TM bilateral and diffuse Face/Nose/Sinus: Normal external nose present, Normal nares present, normal facial exam, No erythema and No edema Face and sinus: normal facial exam, no erythema and no edema Mouth: Yes Normal oral and palatal mucosa present Throat: tonsils normal, posterior oropharynx abnormal erythema; no edema and postnasal drainage Eyes: General: appearance normal, both eyes and all related structures Neck: Neck: normal visual inspection, full ROM and no meningeal sign
== END 2023-09-29 13:38 | disposition home or self-care (01) ==
PROVIDERS: Emergency Provider Nurse Practitioner Family; PCP Internal Medicine
DX: J32.9 Chronic sinusitis, unspecified (principal); J45.909 Unspecified asthma, uncomplicated; Z90.711 Acquired absence of uterus with remaining cervical stump
CPT/HCPCS: 71046; 87804; 99213; G0463

== ENCOUNTER 2023-11-23 17:19 | Emergency (ER) | payer MEDICARE, SELFPAY ==
[2023-11-23 17:28] VITALS: BP 134/93; PULSE 89; RESP 16; TEMP 37.3; O2SAT 96
--- NOTE | 2023-11-23 18:21 | ED.EAR ---
HPI - Ear Problem General Chief complaint: Ear Stated complaint: Left Ear Pain Time Seen by Provider: 11/23/23 18:21 Source: patient, RN notes reviewed and old records reviewed Mode of arrival: ambulatory Limitations: no limitations History of Present Illness HPI Narrative: 68-year-old female to [facility] with complaint of left ear pain for 1 week. Patient denies fever, sore throat, headache, cough, hearing changes, otic discharge. Patient able to tolerate fluids by mouth. Patient in no acute distress in exam room. Related Data Home Medications Medication Instructions Recorded Confirmed montelukast 10 mg tablet 10 mg PO HS 04/04/21 07/24/23 venlafaxine 75 mg capsule,extended 75 mg PO DAILY 04/04/21 07/24/23 release 24 hr omeprazole 20 mg capsule,delayed 20 mg PO DAILY 11/10/22 07/24/23 release loratadine 10 mg tablet (Claritin) 10 mg PO DAILY 07/24/23 07/24/23 Allergies Allergy/AdvReac Type Severity Reaction Status Date / Time Penicillins Allergy Intermediate Rash Verified 07/24/23 13:56 Review of Systems Review of Systems: All systems reviewed & are unremarkable except as noted in HPI and below Constitutional: Constitutional: Reports as per HPI, Denies fatigue and Denies fever(s) Eyes: Eyes: Reports no additional eye complaints ENT: Reports as per HPI, Reports Normal hearing present and Reports otalgia ( left) Cardiovascular: Cardiovascular: Reports no additional cardiovascular complaints, Denies chest pain and Denies dyspnea Respiratory: Respiratory: Reports no additional respiratory complaints, Denies cough and Denies dyspnea Musculoskeletal: Musculoskeletal: Reports no additional musculoskeletal complaints Neurologic: Reports system reviewed and no additional complaints, except as documented Psychiatric: Psychiatric: Reports no additional psychiatric complaints [facility] Past Medical History Medical History Asthma History of recurrent pulmonary infection Immunocompromised Pneumonia Surgical History Surgical History History of lung biopsy History of partial hysterectomy Family History Family History Mother Family history non-contributory Social History Social History Smoking status: Never smoker Substance use: never Living arrangements: with family Gender identity (if verbalized by the patient): Female Sexual Orientation (if Verbalized by the Patient): Straight or Heterosexual Spiritual care concerns: No Comments At the time of my signature, I reviewed and agree with the nursing past medical, surgical, social, and family history. There is no relevant family history pertinent to the patient complaint. Exam Const: General: cooperative, healthy appearing, no acute distress, alert, uncomfortable and well nourished Nutritional Appearance: well nourished Orientation/consciousness: patient oriented x3 Limitations: no limitations HENMT: Head: normal to inspection Ears: external ears normal and TM abnormal bulging on the left, erythematous on the left and with fluid behind the TM bilateral ( clear) Face/Nose/Sinus: Normal external nose present, Normal nares present, normal facial exam, No erythema and No edema Face and sinus: normal facial exam, no erythema and no edema Mouth: Yes Normal oral and palatal mucosa present Eyes: General: appearance normal, both eyes and all related structures Neck: Neck: normal visual inspection, full ROM and no meningeal signs Lymphatic: no lymphadenopathy noted and no lymphedema noted Chest: Chest palpation & inspection: normal inspection of the chest Resp: Effort & Inspection: normal respiratory effort and able to speak in complete sentences Auscultation: clear to auscultation bilaterally Cardio:
== END 2023-11-23 18:35 | disposition home or self-care (01) ==
PROVIDERS: Emergency Provider Nurse Practitioner Family; PCP Internal Medicine
DX: H66.92 Otitis media, unspecified, left ear (principal); J45.909 Unspecified asthma, uncomplicated; D84.9 Immunodeficiency, unspecified
CPT/HCPCS: 99213; G0463